=== PATIENT | male | born 1955 | race Caucasian/White ===

== ENCOUNTER 2017-10-26 18:20 | Emergency (ER) | payer SELFPAY ==
[~2017-10-26] VITALS: Ht 185.4 cm; Wt 86.2 kg
[2017-10-26 18:23] VITALS: BP 140/76
--- NOTE | 2017-10-26 19:30 | NUR ---
Pt alert and oriented x 4. Steady gait. Did not want to stay. Left the ER. PATIENT LEFT WITHOUT BEING SEEN BY DR. Reyes. NO FURTHER CARE PROVIDED FOR PATIENT.
== END 2017-10-26 19:30 | disposition left against medical advice (07) ==
LOC: MED 18:20
DX: F10.129 Alcohol abuse with intoxication, unspecified (principal); Z53.21 Procedure and treatment not carried out due to patient leaving prior to being seen by health care provider